=== PATIENT | male | born 1980 | race Caucasian/White ===

== ENCOUNTER 2017-01-08 16:36 | Emergency (ER) | payer SELFPAY ==
[~2017-01-08] VITALS: Ht 162.6 cm; Wt 64.0 kg
[2017-01-08] MEDS ORDERED: KETOROLAC 60MG/2ML VIAL IM ONE (17:00)
[2017-01-08 19:08] VITALS: BP 143/80
== END 2017-01-08 19:31 | disposition home or self-care (01) ==
LOC: ER 18:55
DX: M25.511 Pain in right shoulder (principal); M54.5 Low back pain; V49.40XA Driver injured in collision with unspecified motor vehicles in traffic accident, initial encounter; Y93.89 Activity, other specified; Y92.410 Unspecified street and highway as the place of occurrence of the external cause
CPT/HCPCS: 72100; 73030; 73502; 96372; 99284; J1885; Z7610